=== PATIENT | female | born 1955 | race Caucasian/White ===

== ENCOUNTER → 2020-08-21 | Outpatient (CLI) | payer OTHER ==
[2016-01-10 11:17] VITALS: BP 132/72
[~2020-08-21] MED LIST: ASPI-886 PO; ATOR20TA58 PO; METO25TA4 PO; TICA90TA PO
--- NOTE | 2020-08-21 12:55 | CARD ---
MR#: [id number] Date of Study: 08/21/2020 Ordering Physician: ÁNGEL GUNTER, Referring Physician: ÁNGEL GUNTER, Tech: Laurie Kirk [facility] APPROVED REPORT EXAM: Two-dimensional and M-mode echocardiogram with Doppler and color Doppler. Other Information Quality : GoodHR: 69bpm INDICATION 2D DIMENSIONS RVDd3.3 (2.9-3.5cm)Left Atrium(2D)4.1 (1.6-4.0cm) IVSd0.9 (0.7-1.1cm)Aortic Root(2D)2.8 (2.0-3.7cm) LVDd4.3 (3.9-5.9cm)LVOT Diameter2.1 (1.8-2.4cm) PWd1.0 (0.7-1.1cm)LVDs3.1 (2.5-4.0cm) FS (%) 28.8 %SV46.1 ml LVEF(%)55.7 (>50%) Aortic Valve AoV Peak Harris.115.2cm/sAoV VTI22.5cm AO Peak GR.5.3mmHgLVOT Peak Harris.85.9cm/s AO Mean GR.2mmHgAVA (VMAX)2.53cm2 Mitral Valve MV E Gwyugssf54.2cm/sMV DECEL APMB102xw MV A Yqevklfs06.2cm/sE/A Ratio0.8 Pulmonary Valve PV Peak Lwvxvtjk77.2cm/s Tricuspid Valve TR P. Fqdczvlr125lr/sTR Peak Gr.25mmHg Pulmonary Vein S1 Wsxmunng79.2cm/sD2 Khbvdzue77.6cm/s PVa [id number] LEFT VENTRICLE The left ventricle is normal size. There is normal left ventricular wall thickness. The left ventricu lar systolic function is normal. The ejection fraction is 60%. There is normal LV segmental wall kimberly on. Transmitral Doppler flow pattern is Grade I-abnormal relaxation pattern. RIGHT VENTRICLE The right ventricle is normal size. There is normal right ventricular wall thickness. The right ventr icular systolic function is normal. ATRIA The left atrium is mildly dilated. The right atrium size is normal. The interatrial septum is intact with no evidence for an atrial septal defect or patent foramen ovale as noted on 2-D or Doppler imagi ng. AORTIC VALVE The aortic valve is normal in structure and function. Doppler and Color Flow revealed no significant aortic regurgitation. There is no significant aortic valvular stenosis. MITRAL VALVE The mitral valve is normal in structure and function. There is no evidence of mitral valve prolapse. There is no mitral valve stenosis. Doppler and Color-flow revealed mild mitral regurgitation. TRICUSPID VALVE The tricuspid valve is normal in structure and function. Doppler and Color Flow revealed mild tricusp id regurgitation. Estimated PAP 26 mmHg. There is no tricuspid valve stenosis. PULMONIC VALVE The pulmonary valve is normal in structure and function. GREAT VESSELS The aortic root is normal in size. The ascending aorta is normal in size. The IVC is normal in size a nd collapses >50% with inspiration. PERICARDIAL EFFUSION There is no evidence of significant pericardial effusion. Critical Notification Critical Value: No <Conclusion> The left ventricular systolic function is normal. The ejection fraction is 60%. There is normal LV segmental wall motion. Transmitral Doppler flow pattern is Grade I-abnormal relaxation pattern. Mild mitral regurgitation. Mild tricuspid regurgitation. Estimated PAP 26 mmHg. There is no evidence of significant pericardial effusion. Signed by : Regan Mary, Electronically Approved : 08/21/2020 12:54:53
== END ==
LOC: ECHO 09:00
PROVIDERS: ATTEND Internal Medicine Cardiovascular Disease
DX: I08.1 Rheumatic disorders of both mitral and tricuspid valves (principal); I21.4 Non-ST elevation (NSTEMI) myocardial infarction
CPT/HCPCS: 93306